=== PATIENT | male | born 1995 | race Caucasian/White ===

== ENCOUNTER 2018-01-26 18:15 | Emergency (ER) | payer SELFPAY ==
[~2018-01-26] VITALS: Ht 170.2 cm; Wt 91.0 kg
[2018-01-26 18:32] VITALS: BP 128/68
== END 2018-01-26 21:10 | disposition left against medical advice (07) ==
LOC: ER 18:15
DX: S09.90XA Unspecified injury of head, initial encounter (principal); Z53.21 Procedure and treatment not carried out due to patient leaving prior to being seen by health care provider; X58.XXXA Exposure to other specified factors, initial encounter; Y93.89 Activity, other specified; Y92.89 Other specified places as the place of occurrence of the external cause; Y99.8 Other external cause status

== ENCOUNTER 2022-10-02 00:36 | Emergency (ER) | payer MEDICAID, OTHER ==
[~2022-10-02] VITALS: Ht 165.1 cm; Wt 81.0 kg
[2022-10-02 00:41] VITALS: BP 145/106
[2022-10-02] MEDS ORDERED: ACETAMINOPHEN 325MG TABLET PO ONE (03:00)
[2022-10-02] MEDS ORDERED: TOPUD PO (03:33)
[2022-10-02] MEDS ORDERED: IBUP-2028 MT (03:33)
== END 2022-10-02 03:45 | disposition home or self-care (01) ==
LOC: ER 00:36
DX: S00.01XA Abrasion of scalp, initial encounter (principal); Y08.89XA Assault by other specified means, initial encounter; Y93.89 Activity, other specified; Y92.89 Other specified places as the place of occurrence of the external cause; Y99.8 Other external cause status; Z87.891 Personal history of nicotine dependence
CPT/HCPCS: 70450; 99284; Z7610